=== PATIENT | female | born 1980 | race Caucasian/White ===

== ENCOUNTER 2023-07-29 15:33 | Emergency (ER) | payer MEDICAID ==
[~2023-07-29] VITALS: Ht 157.5 cm; Wt 112.5 kg
[2023-07-29] MEDS ORDERED: predniSONE 50 MG TABLET PO ONE ×2 (17:00)
[2023-07-29] MEDS ORDERED: ALBU8.5H8 INH (17:00)
[2023-07-29] MEDS ORDERED: PRED50TA PO (17:00)
[2023-07-29] MEDS ORDERED: predniSONE 50 MG TABLET ONE (17:12)
[2023-07-29 17:16] VITALS: O2SAT 97
== END 2023-07-29 17:17 | disposition home or self-care (01) ==
LOC: ER 15:33
DX: J45.909 Unspecified asthma, uncomplicated (principal); Z98.890 Other specified postprocedural states; Z79.899 Other long term (current) drug therapy; Z20.822 Contact with and (suspected) exposure to COVID-19
CPT/HCPCS: 99284; 71045; 87426; 87804 ×2; J7512; A4606; A4663